=== PATIENT | male | born 1950 | race African-American/Black ===

== ENCOUNTER 2022-06-12 09:25 | Emergency (ER) | payer OTHER ==
[~2022-06-12] VITALS: Ht 170.2 cm; Wt 82.0 kg
[2022-06-12 11:20] LABS: BASOPHILS % 0.7 % (0.0-2.0); EOSINOPHILS % 0.7 % (0.0-5.0); HEMATOCRIT. 43.7 % (42.0-52.0); HEMOGLOBIN. 14.8 g/dL (14.0-18.0); LYMPHOCYTES % 16.7 % (20.0-50.0); MEAN CORPUSCULAR HEMOGLOBIN 33.3 pg (28.0-32.0); MEAN CORPUSCULAR VOLUME 98.1 fL (80.0-94.0); MEAN PLATELET VOLUME 9.8 fl (7.4-10.4); MONOCYTES % 6.8 % (2.0-8.0); NEUTROPHILS % 75.1 % (40.0-76.0); PLATELET 212 x1000/uL (130-400); RED BLOOD CELL COUNT 4.46 mill/uL (4.7-6.1); RED CELL DISTRIBUTION WIDTH 13.4 % (11.6-14.6)
[2022-06-12 11:29] LABS: CHLORIDE 109 mEq/L (98-107)
[2022-06-12 11:38] LABS: ETHANOL BLOOD < 10 mg/dL
[2022-06-12] MEDS ORDERED: SODIUM CHLORIDE 0.9% 1,000 ML IV ONE (12:30)
[2022-06-12] MEDS ORDERED: DEXTROSE 50% WATER 50ML SYRINGE IV SCH (12:45)
[2022-06-12 15:55] VITALS: BP 141/76
== END 2022-06-12 16:54 | disposition short-term general hospital (02) ==
LOC: ER 09:25
DX: R41.82 Altered mental status, unspecified (principal); I63.9 Cerebral infarction, unspecified; I10 Essential (primary) hypertension; E11.649 Type 2 diabetes mellitus with hypoglycemia without coma; E78.00 Pure hypercholesterolemia, unspecified; Z20.822 Contact with and (suspected) exposure to COVID-19
CPT/HCPCS: 36415; 70450; 71045; 80053; 80320; 82962; 83605; 83690; 84484; 85025; 85610; 87426; 96361; 96374; 99285; C9803; J7030; G0480